=== PATIENT | male | born 1985 | race Caucasian/White ===

== ENCOUNTER → 2016-08-02 | Outpatient (CLI) | payer BC ==
[~2016-08-02] MED LIST: CYCL10TA6 PO; HYDR-5688 PO; NAPR-1169 PO; PRED10TA PO; TRAM-10 PO
--- NOTE | 2016-08-02 07:57 | DIAGNOSTIC IMAGING REPORT ---
MRI OF THE BRAIN WITHOUT CONTRAST CLINICAL HISTORY: Persistent headaches, nausea. Mood changes. COMPARISON STUDY: None. FINDINGS: Sagittal T1, axial diffusion, proton density and T2 weighted axial, coronal FLAIR, and axial T1-weighted images were acquired. No intra or extra-axial mass lesions are visualized Axial diffusion-weighted images reveal no evidence of acute or subacute infarction. There is no evidence of ventricular dilatation. Proton density T2-weighted and FLAIR images reveal no significant intraparenchymal signal abnormalities. There are no abnormal flow voids. There is a right frontal sinus retention cyst. IMPRESSION: 1. No evidence of intracranial mass 2. No evidence of acute or subacute infarction 3. Right frontal sinus retention cyst Electronically signed by: Denis Cunha M.D. 08/02/2016 7:55 AM
== END | disposition home or self-care (01) ==
LOC: C.MRIBC 06:50
PROVIDERS: ATTEND Nurse Practitioner Family
DX: G44.52 New daily persistent headache (NDPH) (principal); R11.0 Nausea; F39 Unspecified mood [affective] disorder; J34.1 Cyst and mucocele of nose and nasal sinus

== ENCOUNTER → 2017-01-03 | Outpatient (CLI) | payer OTHER ==
--- NOTE | 2017-01-03 16:54 | DIAGNOSTIC IMAGING REPORT ---
LUMBAR SPINE 5 VIEWS CLINICAL HISTORY: Low back pain. FINDINGS: 5 views of the lumbar spine are correlated with MRI of the lumbar spine dated 05/06/2014. The skeletal structures are well mineralized. There is no radiographic evidence of fracture or malalignment. Vertebral body height and alignment are maintained. The transverse and spinous processes are intact. There is no evidence of spondylolysis. Tiny anterior osteophytes are seen at L4 and L5. The intervertebral disc spaces are well-maintained. The visualized bony pelvis appears intact. There is a nonobstructed abdominal bowel gas pattern. IMPRESSION: Unremarkable radiographic evaluation of the lumbosacral spine. Electronically signed by: Dilip Arvizu M.D. 01/03/2017 4:53 PM Dictated Date/Time: 01/03/2017 4:52 PM
== END | disposition home or self-care (01) ==
LOC: C.RAD 16:14
PROVIDERS: ATTEND Nurse Practitioner Family
DX: M54.5 Low back pain (principal); M62.830 Muscle spasm of back

== ENCOUNTER → 2017-02-14 | Outpatient (CLI) | payer OTHER ==
--- NOTE | 2017-02-14 16:53 | DIAGNOSTIC IMAGING REPORT ---
LEFT WRIST MIN 3 VIEWS ROUTINE CLINICAL HISTORY: Left wrist pain following injury. COMPARISON: None FINDINGS: Alignment of the left carpal bones is anatomic. There is no acute fracture. Joint spaces are preserved. IMPRESSION: No acute fracture or dislocation of the left wrist. Electronically signed by: Fabio Mcbride M.D. 02/14/2017 4:51 PM Dictated Date/Time: 02/14/2017 4:50 PM
== END | disposition home or self-care (01) ==
LOC: C.RAD 16:35
PROVIDERS: ATTEND Nurse Practitioner Family
DX: M25.532 Pain in left wrist (principal)

== ENCOUNTER 2017-03-10 00:13 | Emergency (ER) | payer OTHER ==
[~2017-03-10] VITALS: Ht 172.7 cm; Wt 100.2 kg
[~2017-03-10 00:13] MED LIST changes: -CYCL10TA6 PO; -HYDR-5688 PO; -PRED10TA PO; -TRAM-10 PO
[2017-03-10 00:25] VITALS: TEMP 36.8; Ht 172.7 cm; Wt 100.2 kg
[2017-03-10] MEDS ORDERED: METHYLPREDNISOLONE 125 MG VIAL IM STA (00:38)
[2017-03-10] MEDS ORDERED: CYCLOBENZAPRINE HCL 10 MG TAB PO STA (00:38)
[2017-03-10] MEDS ORDERED: HYDROmorphone INJ 1 MG/ML SYR IM STA (00:38)
[2017-03-10] MEDS ORDERED: TRAM-10 PO (00:50)
[2017-03-10] MEDS ORDERED: PRED10TA PO (01:24)
[2017-03-10] MEDS ORDERED: HYDR-5688 PO (01:24)
[2017-03-10] MEDS ORDERED: CYCL10TA6 PO (01:24)
[2017-03-10 01:28] VITALS: PULSE 107; O2SAT 97
--- NOTE | 2017-03-10 01:30 | EMERGENCY ROOM VISIT NOTE ---
History Report prepared by Gonzalez: Remberto Pickard Under the Supervision of: Dr. Lauren Gunn M.D. First contact with patient: 00:32 Chief Complaint: BACK PAIN Stated Complaint: EXTREME LOWER BACK PAIN History of Present Illness The patient is a 31 year old male who presents to the Emergency Room with complaints of worsening lower back pain for the past few days that feels like someone is stabbing. The patient states that in 2014 he had a L4-L5 laminectomy , and since then he has had some chronic back pain, though it has worsened. He states that he had an MRI done a few weeks ago as well. The patient states that the pain goes down his front right leg, and he denies any loss of control of his bowel or bladder. He denies any abdominal pain. The patient states that he took tramadol around 1400, though it has not helped. Source of History: patient Onset: few days ago Position: back (lower) Quality: stabbing Timing: worsening Associated Symptoms: No abdominal pain Note: Associated symptoms: right leg pain Review of Systems See HPI for pertinent positives & negatives. A total of 10 systems reviewed and were otherwise negative. Past Medical & Surgical Surgical Problems: (1) History of appendectomy (2) History of lumbar surgery Family History Patient reports no known family medical history. Social History Smoking Status: Never Smoker Alcohol Use: none Marital Status: in relationship Housing Status: lives with family Occupation Status: employed Current/Historical Medications Scheduled Prednisone (Prednisone), 10 MG PO DIRECTED Scheduled PRN Cyclobenzaprine Hcl (Flexeril), 10 MG PO TID PRN for Muscle Spasms Hydrocodone/Acetaminophen 5MG/325MG ([place] 5MG/325MG), 1 TABLET PO Q6 PRN for Pain Tramadol (Ultram), 50 MG PO Q4-6HOURS PRN for Pain Allergies Coded Allergies: Penicillins (Verified Allergy, Unknown, RASH, 03/10/17) Physical Exam Vital Signs Date Time Temp Pulse Resp B/P (MAP) Pulse Ox O2 Delivery O2 Flow Rate FiO2 03/10/17 01:31 145/86 03/10/17 01:28 107 97 03/10/17 01:13 103 97 03/10/17 01:12 145/87 03/10/17 00:25 36.8 99 20 148/91 100 Room Air Physical Exam Vital signs reviewed. General: Well-appearing male, in no significant distress. HEENT: No scleral icterus, PERRLA, neck supple. Atraumatic. Cardiovascular: Regular rate and rhythm, no extra sounds. Pulmonary: Clear to auscultation bilaterally, normal work of breathing. Abdomen: Soft, nontender, nondistended, positive bowel sounds. Musculoskeletal: Mild lumbar paraspinous tenderness. Pain with right straight leg raise. Atraumatic, no peripheral edema. Neurologic: Patient awake alert and oriented x 3, full strength in all 4 extremities. Cranial nerves 2 through 12 grossly intact. Skin: Warm, dry, no rash Medical Decision & Procedures Medications Administered Medications (Trade) Dose Ordered Sig/Flako Route Start Time Stop Time Status Last Admin Dose Admin Methylprednisolone Sodium Succinate (Solu-Medrol IV) 125 mg NOW STAT IM 03/10/17 00:38 03/10/17 00:40 DC 03/10/17 00:57 125 MG Cyclobenzaprine HCl (Flexeril Tab) 10 mg NOW STAT PO 03/10/17 00:38 03/10/17 00:40 DC 03/10/17 00:55 10 MG Hydromorphone HCl (Dilaudid Inj) 1 mg NOW STAT IM 03/10/17 00:38 03/10/17 00:40 DC 03/10/17 00:57 1 MG ED Course 0032: Past medical records reviewed. The patient was evaluated in room B2. A complete history and physical examination was performed. 0038: Dilaudid Inj 1mg IM, Flexeril Tab 10mg PO, Solu-Medrol 125 MG 0123: Upon reevaluation, the patient appeared to have improvement of his symptoms. I discussed findings with him. He verbalized agreement of the treatment plan. He was discharged home. Medical Decision Differential diagnosis: Etiologies such as musculoskeletal, disc herniation, fracture, aortic disease, metastatic disease, cord compression, discitis, infection, renal colic, gastrointestinal, acute exacerbation of chronic back pain, sciatica, cauda equina, as well as others were entertained. This patient was evaluated and appeared to be in no significant distress. Physical examination is consistent with a lumbar paraspinous muscle spasm. MRI results were reviewed from the outside facility indicating an L4-L5 disc herniation primarily. Patient had improvement in symptoms from IM Solu-Medrol, oral Flexeril and IM Dilaudid. He was discharged on a prednisone taper and given a short prescription (#14 tabs) of [place]. He will f/u with his spine surgeon as scheduled later this month. Pt will return to the ED for worsening of symptoms or any medical concerns. Medication Reconcilliation Current Medication List: was personally reviewed by me Blood Pressure Screening Patient's blood pressure: Elevated blood pressure Blood pressure disposition: Elevated BP felt to be situational Impression Primary Impression: Herniation of lumbar intervertebral disc with radiculopathy Scribe Attestation The scribe's documentation has been prepared under my direction and personally reviewed by me in its entirety. I confirm that the note above accurately reflects all work, treatment, procedures, and medical decision making performed by me. Departure Information Dispostion Home / Self-Care Prescriptions Prednisone (Prednisone) 10 Mg Tab 10 MG PO DIRECTED, #31 TAB 40 mg for 4 days, 30 mg for 3 days, 20 mg for 2 days, 10 mg for 2 days Prov: Lauren Gunn M.D. 03/10/17 Cyclobenzaprine Hcl (FLEXERIL) 10 Mg Tab 10 MG PO TID Y for Muscle Spasms, #21 TAB Prov: Lauren Gunn M.D. 03/10/17 Hydrocodone/Acetaminophen 5MG/325MG ([place] 5MG/325MG) Tab 1 TABLET PO Q6 Y for Pain, #14 TAB Prov: Lauren Gunn M.D. 03/10/17 Referrals No Doctor, Assigned (PCP) Forms HOME CARE DOCUMENTATION FORM, IMPORTANT VISIT INFORMATION Patient Instructions My [facility] Additional Instructions Diagnosis: Lumbar disc herniation with radiculopathy. Prednisone 40 mg for 4 more days, 30 mg for 3 days, 20 mg for 2 days, 10 mg for 2 days. Flexeril 10 mg every 8 hours as needed for muscular spasm. [place] one tablet every 6 hours as needed for more severe pain. Do not drive or take Tylenol with this medication. Follow-up with your physician this week for reevaluation. Follow-up with your spine surgeon as scheduled. Return to the ER for worsening of symptoms or any medical concerns.
[2017-03-10 01:31] VITALS: BP 145/86
== END 2017-03-10 01:37 | disposition home or self-care (01) ==
LOC: C.EDB 00:14
DX: M51.16 Intervertebral disc disorders with radiculopathy, lumbar region (principal); Z98.890 Other specified postprocedural states; Z88.0 Allergy status to penicillin